=== PATIENT | female | born 2000 | race Caucasian/White ===

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

== ENCOUNTER 2020-07-26 10:12 | Emergency (ER) | payer MEDICAID, SELFPAY ==
[2020-07-26 10:14] VITALS: BP 146/96; PULSE 107; RESP 18; TEMP 36.6; O2SAT 100; BMI 28.7
--- NOTE | 2020-07-26 10:22 | ED.DCSUM_ITS ---
History of Present Illness Informant: Patient Onset: Days - 4 days Context: Gradual Onset Timing: Continuous Quality: Sharp Location: jaw bilaterally Current Severity: Severe Maximum Severity: Severe Worsened by: Eating and drinking Relieved by: - - Nothing Associated Symptoms: Jaw Swelling, Facial Swellling, Hot, Cold, Sensitivity Narrative: 20-year-old female Presents because she had multiple teeth pulled including her wisdom teeth on Wednesday. She is having swelling of her face and jawline increased pain not relieved with Motrin. She had a follow-up 2 days after that and was told she had an infection and started on amoxicillin. She states it has not improved. No fevers. No difficulty breathing or swallowing. No difficulty opening or closing her mouth. She is not lightheaded or dizzy no headache or neck pain. Rest of review of systems negative. Prior similar symptoms: Yes Recent Illness/Hospitalization: No <Lucio Matamoros - Last Filed: 07/26/20 11:18> <Farzad Altamirano - Last Filed: 07/26/20 15:22> Chief Complaint: Dental Past Medical History Past Medical History: None Surgical History: no surgical history Lives: With Family Smoking Status: Current every day smoker Alcohol: None Drugs: None <Lucio Matamoros - Last Filed: 07/26/20 11:18> <Farzad Altamirano - Last Filed: 07/26/20 15:22> - Allergies and Home Meds Allergies/Adverse Reactions: Allergies No Known Allergies Allergy (Verified 07/26/20 10:13) Primary Care Physician: Care Physician,No Primary [Primary Care Provider] - Review of Systems All systems negative except as indicated General: Denies: Chills, Fever, Malaise, Sweats Eyes: Denies: Visual changes - bilaterally, Diplopia ENT: Reports: - - Facial pain and dental pain. Denies: Rhinorrhea, Sore throat Cardiovascular: Denies: Chest pain, Palpitations Respiratory: Denies: Dyspnea, Cough, Dyspnea on exertion Gastrointestinal: Denies: Abdominal pain, Nausea, Vomiting, Diarrhea, Melena, Hematochezia Genitourinary: Denies: Dysuria, Hematuria, Frequency Musculoskeletal: Denies: Back pain, Extremity Pain Skin: Denies: Rash, Wounds Neurological: Denies: Headache, Weakness, Numbness <Lucio Matamoros - Last Filed: 07/26/20 11:18> Physical Exam Vital Signs/Narrative: Vital Signs Temp Pulse Resp BP Pulse Ox 07/26/20 10:14 97.8 F 107 H 18 146/96 H 100 Inital Vital Signs reviewed: Yes General: Well nourished, Well developed Head: Normocephalic, Atraumatic ENT: Moist mucous membranes, No rhinorrhea, TM's clear Mouth/Throat: Normal inspection lips/gums, Normal oral mucosa, No focal abscess, Normal posterior oropharynx, No sublingual edema, Normal Stensen's duct, Focal g um swelling, Tenderness on tooth percussion. Negative for: Dental trauma, Dental abscess, Dental avulsion, Dentral fracture, Filling loss, Focal dental decay, Gingivitis, Trismus Neck: Supple, Nontender, No JVD, Anterior submandibular lymphadenopathy, Posterior submandibular lymphadenopathy, Anterior submental lymphadenopathy, Posterior submental lymphadenopathy. Negative for: Soft tissue swelling, Submandibular soft tissue swelling, Submental soft tissue swelling, Parotid tenderness Cardiovascular: Regular rate, Regular rhythm, No murmurs Respiratory: No distress, CTA bilaterally, Chest nontender Abdomen: Soft, Nontender, Nondistended, Normal bowel sounds Back: Nontender, Normal Inspection. Negative for: CVA tenderness Extremities: Nontender, No edema Skin: Normal color, No rash Neurological: Alert, Oriented x3, Cranial nerves II-XII grossly intact, Normal Strength, Normal Sensation Psychological: Normal affect, Normal Mood <Lucio Matamoros - Last Filed: 07/26/20 11:18> Diagnostic/Tx/Re-eval - Medical Decision Making Patient on exam has no focal abscess no sublingual edema no trismus no drooling or stridor her voice is normal her airway is normal she is eating and drinking and is concerned for worsening infection. She was reassured that at this time there is no focal abscess or other indication for acute surgical intervention or admission. We will switch her from amoxicillin to Augmentin. She will continue Motrin and Tylenol to alternate these and follow-up with her dentist on Wednesday or if symptoms worsen over the weekend to return to the emergency department. <Lucio Matamoros - Last Filed: 07/26/20 11:18> - Medical Decision Making Patient was seen with me. I did a [id number] examination with the patient. Patient presents with right lower dental pain that has been getting worse over the past couple days. Patient states she recently had 3 teeth pulled. Patient states she has been having difficulty opening her jaw due to the pain. Patient states she has been drinking okay. Patient states her jaw opening is getting better over the past couple days. Patient was started on amoxicillin by her dentist. Vital signs are stable. Patient is afebrile. Patient is in no acute distress. Oral mucosa is pink and moist. Oropharynx is clear. There is no focal abscess. There is no exudate on the tonsils. There was some edema over the gingiva of the right lower third molar area. There is tenderness to palpation on this area. Neck is supple. Trachea is midline. There is no JVD. There is no sublingual edema or evidence of Kunal angina. Heart was regular rate and rhythm. Lungs are clear and equal bilaterally. Patient was given a dose of Augmentin. Patient was given a prescription for Augmentin. Patient was instructed to continue Tylenol and/or Motrin as needed for pain or fevers. Patient was instructed to follow-up with her dentist in 5 to 7 days. Patient understood and was agreeable with the plan. All questions were answered. <Farzad Altamirano - Last Filed: 07/26/20 15:22> ED Disposition <Lucio Matamoros - Last Filed: 07/26/20 11:18> <Farzad Altamirano - Last Filed: 07/26/20 15:22> - Plan for ED Patient: Disposition: Home or Assisted Living Diagnosis: Odontalgia, S/P tooth extraction Instructions: ED Dental Pain Prescriptions: Amox/Clavulanate Tablet [Augmentin Tablet] 875 mg PO Q12H #20 tab Transmission Status: Received by [facility]/pharmacy #[id number] Referrals: Care Physician,No Primary [Primary Care Provider] - Additional Instructions: Please call your dentist today to schedule immediate follow-up
== END 2020-07-26 11:31 | disposition home or self-care (01) ==
PROVIDERS: Emergency Provider Physician Assistant Medical
DX: K08.89 Other specified disorders of teeth and supporting structures (principal); K08.409 Partial loss of teeth, unspecified cause, unspecified class; F17.200 Nicotine dependence, unspecified, uncomplicated; Z79.2 Long term (current) use of antibiotics
CPT/HCPCS: 99282

== ENCOUNTER 2022-10-09 11:08 | Day surgery (SDC) | payer BC, MEDICAID, SELFPAY ==
[2022-10-07 16:31] LABS: Hematocrit 40.2 % (37-47); Hemoglobin 13.2 g/dL (12.0-15.0); Mean Corp Hgb Conc 32.8 g/dL (32-36); Mean Corpuscular Hgb 28.8 pg (27.0-32.0); Mean Corpuscular Volume 87.8 fL (81-99); Mean Platelet Vol. 11.6 fl (6.2-12.0); Platelet Count 244 K/mm3 (150-450); RBC Distribution Width CV 13.2 % (11.6-14.6); Red Blood Count 4.58 M/mm3 (4.2-5.4); White Blood Count 11.3 K/mm3 (4.4-11.0)
--- NOTE | 2022-10-09 | FALS_PTH ---
PATIENT: OMAR SANCHEZ LOC: [facility] [place] U#:[id number] AGE/SX: 22/F ROOM: RE10/09/[address]: Dr. Yajaira Dietrich, MDDOB: 2000 BED: DIS: 10/09/2022 SPEC #: [id number] RECD: 10/09/22 15:00 STATUS: NGUYEN BRIDGER #: [id number] IDALIA: 10/09/22 00:[address]: Yajaira Dietrich DEPT: SURGICAL PATHOLOGY RECD BY: Eric Paris ENTERED: 10/12/22 08:43 SP TYPE: FALL TUBES OTHR DR: No Primary Care Phys Tissues: Fallopian tube Procedures: Surgery Specimen Level II Surgery Specimen Level IV HEADER OPERATION: Laparoscopic salpingectomy, IUD removal PRE-OP DIAGNOSIS: Sterilization TISSUE SUBMITTED: Bilateral fallopian tubes MICROSCOPIC DIAGNOSIS Right and left fallopian tubes, bilateral salpingectomies: Complete cross-sections of fallopian tubes. One fallopian tube with benign paratubal cyst. AM:jameson 10/13/2022 MICROSCOPIC DESCRIPTION Slides are reviewed. GROSS DESCRIPTION Received in fixative is one container labeled with the patient's name and designated bilateral fallopian tubes. The specimen consists of bilateral fallopian tubes including fimbrial ends measuring 6.0 cm in length and 1.0 cm in diameter and 7.0 cm in length and 0.8 cm in diameter. The fallopian tubes are not identified as right or left. Sections reveal unremarkable cut surfaces. One tube contains a cyst containing clear fluid and measuring 1.0 cm, adjacent to the fimbrial end. Pharmacist Critical Care sections are submitted in two cassettes with each cassette containing one fallopian tube. / SJ:jameson 10/12/2022 TC:5 CPT: 11075, 16473
--- NOTE | 2022-10-09 08:55 | PCM.HP.BLA ---
History and Physical Date of Admission: 10/09/22 Expand All Collapse AllExpand All by Default Pre-Op History and Physical ? HPI: The patient is a 22 year old female presenting for surgical sterilization consultation. Patient reports has 1 child age 33 years old. Does not desire future childbearing capabilities. Patient currently uses an IUD but would like it removed. Patient understands that this is not reversible. She understands the risk of regret. ? Pre-operative visit. She is scheduled for laparoscopic bilateral salpingectomy, for desires sterilization on 10/09/2022. Procedure discussed along with risks, benefits and complications. Other alternatives discussed for management. Consent form signed? Yes. ? ? PAST MEDICAL HISTORY PAST MEDICAL HISTORY Diagnosis Date ? Anemia during in second trimester 05/31/2019 ? ? PAST SURGICAL HISTORY PAST SURGICAL HISTORY Procedure Laterality Date ? TONSILLECTOMY HX ? CURRENT MEDICATIONS Current Outpatient Medications Medication Sig Dispense Refill ? levonorgestrel (MIRENA) 20 mcg/24 hours (6 yrs) 52 mg IUD 1 Each by INTRAUTERINE route as directed. 1 Each 0 ? No current facility-administered medications for this visit. ? ? ALLERGIES: Patient has no known allergies. ? PERSONAL HISTORY: SOCIAL HISTORY Social History ? Tobacco Use ? Smoking status: Every Day ? ? Packs/day: 0.50 ? ? Types: Cigarettes ? Smokeless tobacco: Never ? Tobacco comments: ? ? Vaping Vaping Use ? Vaping Use: current everyday user ? Substances: Nicotine Substance Use Topics ? Alcohol use: Not Currently ? Drug use: Not Currently ? ? Types: Marijuana ? FAMILY HISTORY: FAMILY HISTORY FAMILY HISTORY Problem Relation Age of Onset ? Heart Mother ? ? other (unknown) Father ? ? No Known Problems Sister ? ? Asthma Brother ? ? other (constipation/impaction isues) Brother ? ? No Known Problems Maternal Grandmother ? ? No Known Problems Maternal Grandfather ? ? No Known Problems Paternal Grandmother ? ? Cancer Paternal Grandfather ? ? Asthma Brother ? ? ? REVIEW OF SYMPTOMS: negative except as noted above PHYSICAL EXAMINATION: ? VITALS: Blood pressure 140/86, weight 202 lb (91.6 kg), last menstrual period 07/24/2020. ? GENERAL: The patient is well nourished, well hydrated in no acute distress. , The patient is oriented to time, place, and person. NECK: full range of motion LUNGS: Clear to auscultation bilaterally. no wheezes, rhonchi or rales HEART: Regular rate and rhythm, Normal heart sounds, and No murmurs or gallops ? ? IMPRESSION: 22-year-old G1, P1 desires permanent sterilization, and removal of Mirena IUD ? PLAN: Laparoscopic bilateral salpingectomy with removal of Mirena IUD. Pt has been counseled on risks/benefits and alternatives of surgery including but not limited to anesthesia, bleeding, infection, injury to pelvic structures including bowel, bladder, ureters and vessels. Pt wishes to proceed with surgery at this time. Patient understands that this is irreversible and permanent. She understands that if she ever wants to conceive that she would have to go through reproductive medicine. Understands that menses may become more heavy and regular once IUD is removed. ? Consent signed. Pre and postop instructions were reviewed. ? ? I have reviewed and updated past medical and surgical history, medications and allergies Yajaira Mejia MD
[2022-10-09 11:36] LABS: Internal QC Validated? YES +Cl - CLEAR BKGD; Pregnancy, Urine Negative Negative
[2022-10-09 11:41] VITALS: BP 143/82; PULSE 92; RESP 16; TEMP 37.1; O2SAT 99; BMI 29.7
[2022-10-09] MEDS: Lactated Ringers 1,000 ML 15 ML IV (11:48)
[2022-10-09] MEDS: Bupivacaine 0.25% 30 ML Vial (13:51)
--- NOTE | 2022-10-09 14:24 | DCINST_ITS ---
Discharge Instructions Procedure Other Diet Discharge Diet: No restrictions Activity May resume sexual activity in: 2 weeks Lifting Restrictions: 20-25 lbs Dressing / Incision Call your doctor if your incision/area has: Continuous Slow Oozing, Sudden Increased Bleeding, Increased Pain/ Swelling, Increased Redness, Foul Smelling Discharge and Swelling at the incision site Call your doctor if you observe: Fever of 101 or Higher, Inability to urinate, Inability to have a bowel movement, Using more than 1 pad per hour and Uncontrolled pain Additional Dressing/Incision Instructions:: You have skin glue over your incision sites, do not pick off. You may shower and let the soap and water run over the incision sites and dab dry. Follow Up Care Please Follow Up With: Yajaira Dietrich MD When: 1-2 weeks post OP if you need an appointment please call [phone] Test Results: Test results from this visit will be discussed in further detail at your follow- up appointment, if applicable. Discharge Plan Admission Attending Provider: Yajaira Dietrich Primary Care Provider: Care Physician,Sharon Primary Discharge Orders/Prescriptions Prescriptions: No Action NK Referrals / Follow Up: Care Physician,No Primary [Primary Care Provider] - Disposition Disposition (needs filled in before D/C Order can be placed): Home, Self Care
--- NOTE | 2022-10-09 14:25 | OP.PCM_ITS ---
Report of Operation Date of Procedure: 10/09/22 Pre-Operative Diagnosis: Desires sterilization, IUD removal Post-Operative Diagnosis: same Surgery/Procedure Performed:: Laparoscopic Bilateral salpingectomy, IUD removal Description of Surgical Findings:: normal Tubes and ovaries bilaterally Surgeon: Yajaira Dietrich turnstile collector: None (lula pacheco, MS3) Type of Anesthesia: Local and MAC Special Medications: .25% marcaine Specimen's removed: IUD - mirena, Bilateral Fallopian tubes Drains: none Estimated Blood Loss (mL): <5cc Fluids Replaced: 1200 Description of Procedure: After informed consent was obtained patient was taken to the operating room she was placed in supine position she was given anesthesia. She was then placed in the [facility] stirrups and she was prepped and draped in normal sterile fashion. Bladder was drained prior to the start of procedure. At this time attention was turned to the vaginal portion where weighted speculum placed at posterior fornix vagina single-tooth tenaculum was used to gently grasp the internal the cervix. IUD strings not seen- Alva used to grasp strings in endocervical canal. IUD removed intact. uterus was gently sounded to appro ximately cm. Uterine manipulator was placed without difficulty. Legs then placed in parallel with the abdomen the tenaculum and the weighted speculum were removed. 2 towel clamps were placed at level of umbilicus. Marcaine was injected infraumbilical and a small incision was made. The 5 mm trocar was placed under direct visualization. CO2 gas was used to insufflate the intra- abdominal cavity. Upon inspection no gross abnormalities appreciated- the uterus tubes and ovaries appeared to be normal. At this time then the LLQ and RLQ ports were placed First Marcaine was injected and small incision was made a knife and the 5 mm trocars were placed. At this time then tubes were traced back to the fimbriated ends. Enseal was used to coagulate and ligate along mesosalpinx bilaterally until tubes removed completely. Good hemostasis was appreciated. At this time procedure was deemed complete successful. The gas was desufflated on from the intra-abdominal cavity. The trochars were removed. Skin was closed using 4-0 Monocryl in a subcutaneous fashion. Dermabond glue was placed. Instrument lap and needle counts were correct ?2. The uterine manipulator was removed. Vaginal sweep was performed it was negative. There were no complications anticipated normal postoperative course for this patient. Grafts/Implants Used: none Procedure Start Time: 13:50 Procedure Stop Time: 14:15 Complications none Admit VTE Documentation VTE Present on Admission: Yes VTE Mechan Device Prophylaxis: SCD's VTE Pharm Prophylaxis ordered?: No Reason prophylaxis not ordered:: Procedure Not Indicated
[2022-10-09 14:30] VITALS: BP 143/82; BP 160/80; PULSE 76; RESP 18; O2SAT 98
[2022-10-09 14:32] VITALS: BP 143/82; BP 155/109; PULSE 80; RESP 20; TEMP 36.4; O2SAT 100
[2022-10-09 14:45] VITALS: BP 127/82; BP 143/82; PULSE 69; RESP 18; O2SAT 95
[2022-10-09 15:00] VITALS: BP 124/75; BP 143/82; PULSE 70; RESP 16; TEMP 37.4; O2SAT 96
[2022-10-09] MEDS: HYDROcodone Bitartrate/Apap 5/325 Tablet PO (15:44)
[2022-10-09 16:21] VITALS: BP 109/63; BP 143/82; PULSE 71; RESP 16; TEMP 37.1; O2SAT 97
== END 2022-10-09 16:33 | disposition home or self-care (01) ==
LOC: SDC 11:10 → AC 11:11
PROVIDERS: Referring Provider Obstetrics & Gynecology; Visit Provider Obstetrics & Gynecology
PROC: (CPT 58661; principal; 2022-10-09 13:40)
DX: Z30.2 Encounter for sterilization (principal); Z30.432 Encounter for removal of intrauterine contraceptive device; N83.8 Other noninflammatory disorders of ovary, fallopian tube and broad ligament; F17.210 Nicotine dependence, cigarettes, uncomplicated
CPT/HCPCS: 58661; 58301; 36415; 81025; 85027; 88302; 88305; J7120; C1760; J2405

== ENCOUNTER 2022-10-15 10:09 | Emergency (ER) | payer BC, MEDICAID, SELFPAY ==
[2022-10-15 10:10] VITALS: BP 167/109; PULSE 89; RESP 14; TEMP 36.6; O2SAT 100; BMI 28.8
--- NOTE | 2022-10-15 10:34 | ED.VIS.FEGU ---
HPI HPI - Female History of Present Illness Chief Complaint: Vag Bleeding Narrative Narrative: Patient presents with vaginal bleeding. She thinks it is likely her menstrual cycle but she wants to make sure since a week ago she had removal of her fallopian tubes as well as removal of her IUD. She has no abdominal pain, she does not feel lightheaded. She has no fevers or chills. She has no dysuria or hematuria she has no other complaints other than this feels like a normal. She just wants to make sure. PFSH PFSH Medical History Anemia Depression Marijuana use Rash Smoker Home Medications NK 10/02/22 [History Last Taken Unknown] Allergy/AdvReac Type Severity Reaction Status Date / Time No Known Allergies Allergy Verified 10/09/22 11:40 Surgical History History of tonsillectomy Social History Smoking Status: Current every day smoker tobacco type: cigarettes ROS ROS ED ROS Narrative Past medical history: G1, P1 Medications: Reviewed Social history: Noncontributory Review of systems: All systems negative except as indicated General: No fever Cardiovascular: No chest pain Respiratory: No shortness of breath or cough Gastrointestinal: No abdominal pain, nausea vomiting or diarrhea Genitourinary: No dysuria, vaginal bleeding as in HPI Musculoskeletal: Denies myalgias no difficulty with ambulation Skin: No rash Hematologic: No easy bleeding or easy bruising EXAM Physical Exam Narrative Exam Narrative: Physical exam General: Patient does not appear in any distress she appears comfortable in the room Head: Normocephalic, Atraumatic Eyes: Conjunctiva not pale ENT: Moist mucous membranes Cardiovascular: Regular rate, Regular rhythm Respiratory: No distress, CTA bilaterally Abdomen: Soft, Nontender, Nondistended, incisions are clean dry and intact : Speculum exam reveals very slight bleeding from the os. This is in line with likely a normal menstrual cycle bleeding. Cervix is not friable and appears normal. Back: Nontender, Normal Inspection. Negative for: CVA tenderness Extremities: Nontender, No edema Skin: Normal color, No rash Const Vital Signs: 10/15/22 10:10 Temperature 98 F Temperature Source Temporal Pulse Rate 89 Respiratory Rate 14 Blood Pressure 167/109 H Blood Pressure Mean 128 Pulse Ox 100 Oxygen Delivery Method Room Air MDM MDM MDM Narrative Medical decision making narrative: Patient is presenting with vaginal bleeding. That is a her only complaint, she just wants to make sure that after surgery everything looks all right. On my exam she has no signs of infection, she has what I think is normal vaginal bleeding from the menstrual cycle. I reassured her I do not believe she needs any kind of blood work. I thought about an ultrasound but she has no abdominal pain her blood is not foul-smelling therefore I do not believe there is an infection. She understands this she is okay with the plan of discharge to home, if anything changes she is to return. Discharge Plan Triage Chief Complaint: Vag Bleeding ED Provider: Supa Ho Dx/Rx/DC Orders Clinical Impression: Abnormal vaginal bleeding, Encounter for post surgical wound check Instructions: Understanding Uterine Bleeding Prescriptions: No Action NK Primary Care Provider: Care Physician,No Primary Referrals: Care Physician,No Primary [Primary Care Provider] - Disposition Disposition: Home, Self Care
[2022-10-15 10:42] VITALS: RESP 16
== END 2022-10-15 10:43 | disposition home or self-care (01) ==
LOC: ED 10:42
PROVIDERS: Emergency Provider Emergency Medicine; Visit Provider Emergency Medicine
DX: N93.9 Abnormal uterine and vaginal bleeding, unspecified (principal); Z51.89 Encounter for other specified aftercare; F17.210 Nicotine dependence, cigarettes, uncomplicated; Z90.79 Acquired absence of other genital organ(s); Z98.890 Other specified postprocedural states
CPT/HCPCS: 99282

== ENCOUNTER 2023-12-14 12:27 | Emergency (ER) | payer MEDICAID, SELFPAY ==
[2023-12-14 12:28] VITALS: BP 157/99; PULSE 107; RESP 20; TEMP 36.1; O2SAT 100; BMI 21.7
--- NOTE | 2023-12-14 12:52 | RAD_ITS ---
STUDY: X-RAY CHEST REASON FOR EXAM: Female, 23 years old. chest pain TECHNIQUE: Single AP portable view of the chest. COMPARISON: 11/28/2009 FINDINGS: EKG leads overlie the chest The lungs are clear and expanded. There is no demonstrated pleural abnormality. Normal size heart. Normal mediastinum and xiomara. Normal visualized pulmonary arteries. Normal visualized aortic arch and descending thoracic aorta. Normal visualized thoracic spine. Normal visualized ribs, clavicles, and shoulders. There is no demonstrated abnormality of the visualized soft tissue structures of the upper abdomen. RAD/Chest 1 View (Portable) IMPRESSION: Normal x-ray examination of the chest. Electronically Signed: Evan Easley MD at 13:18 EDT ,
--- NOTE | 2023-12-14 12:52 | EKG12_ITS ---
Test Reason : CHEST PAIN Blood Pressure : / mmHG Vent. Rate : 080 BPM Atrial Rate : 080 BPM P-R Int : 144 ms QRS Dur : 094 ms QT Int : 390 ms P-R-T Axes : 075 081 051 degrees QTc Int : 449 ms Normal sinus rhythm Normal ECG Confirmed by RUDY LEDESMA, JUSTIN ([id number]), newspaper managing editor JORDY CARTER ([id number]) on 12/16/2023 6:58:29 AM Referred By: Confirmed By:JUSITN GRANT MD
[2023-12-14 13:00] VITALS: O2SAT 96
[2023-12-14 13:28] VITALS: BP 135/91; BP 136/87; BP 149/104; PULSE 100; PULSE 65; PULSE 76
[2023-12-14 13:34] LABS: Absolute Lymphocyte Count 2.08 X10^3/uL (0.83-4.51); Absolute Neutrophil Count 4.1 X10^3/uL (2.0-7.7); Basophil# 0.05 X10^3/uL; Basophil% 0.7 % (0-1); Eosinophil# 0.06 X10^3/uL; Eosinophils% 0.9 % (0-5); Hematocrit 38.9 % (37-47); Hemoglobin 13.1 g/dL (12.0-15.0); Lymphocyte # 2.08 X10^3/ul (0.83-4.51); Lymphocyte % 30.1 % (19-41); Mean Corp Hgb Conc 33.7 g/dL (32-36); Mean Corpuscular Hgb 29.4 pg (27.0-32.0); Mean Corpuscular Volume 87.4 fL (81-99); Mean Platelet Vol. 11.9 fl (6.2-12.0); Monocyte# 0.65 X10^3/uL; Monocyte% 9.4 % (0-10); NRBC Flagged by Analyzer 0 % (0-5); Neutrophil # 4.05 X10^3/uL (2.7-7.7); Neutrophil % 58.8 % (47-70); Platelet Count 271 K/mm3 (150-450); RBC Distribution Width CV 13.4 % (11.6-14.6); RBC Distribution Width SD 42.9 fl (35.1-43.9); Red Blood Count 4.45 M/mm3 (4.2-5.4); White Blood Count 6.9 K/mm3 (4.4-11.0)
[2023-12-14 13:43] LABS: BNP,B-Type NATRIURETIC PEPTIDE 14.3 pg/mL (0-100)
[2023-12-14 13:47] LABS: Anion Gap 7 (5-15); BUN 19 mg/dL (7-18); BUN/Creat Ratio 24.2 RATIO (10-20); Calcium,Total 9.2 mg/dL (8.5-10.1); Chloride 107 mmol/L (98-107); Creatinine, Serum 0.78 mg/dL (0.55-1.02); EST Glomerular Filtration Rate 96 mL/min (>60); Est Glom Filt Rate - Afr Amer 117 mL/min (>60); Estimated Creatinine Clearance 128.68 ml/min; Glucose 97 mg/dL (74-106); Potassium 3.5 mmol/L (3.5-5.1); Sodium Level 140 mmol/L (136-145); Troponin-I HS 6 pg/mL (3.0-54.0)
[2023-12-14 13:48] LABS: D-Dimer Quantitative (DVT/PE) < 0.27 FEU/ug/m (0.27-0.49)
[2023-12-14 14:15] VITALS: BP 134/87; PULSE 58; RESP 14; O2SAT 96
[2023-12-14] MEDS: 0.9% Normal Saline (1000mL) 1,000 ML 999 ML IV (14:18)
[2023-12-14 15:30] VITALS: BP 127/86; PULSE 64; RESP 15; O2SAT 96
--- NOTE | 2023-12-14 16:13 | ED.VIS.CHEST ---
HPI History of Present Illness Chief Complaint: Chest Pain Narrative Narrative: Patient presenting with chest pain and tightness. States also felt she was short of breath and hyperventilating and felt numbness and tingling in her fingers and toes patient has a history of anxiety and used to be on Celexa but states she felt high on Celexa and did not like the feeling. She discontinued it months ago and she has been having episodes of this tightness and shortness of breath. She does not have a cardiac history. She is a smoker and smokes marijuana. Patient denies asthma or COPD history. CVD Risk Factors: Positive for Smoking; Negative for Hypertension, Diabetes, Hypercholesterolemia or Family History 1' </=55 PE Risk Factors: Negative for Recent Travel/Surgery, Recent Immobilization, Prior DVT or PE, Cancer or OCP + Smoking + >/=35 PFSH PFSH Medical History Anemia Depression Marijuana use Rash Smoker Home Medications hydroxyzine pamoate 25 mg capsule (Vistaril) 25 mg PO TID PRN anxiety #30 caps 12/14/23 [Rx Last Taken Unknown] Allergy/AdvReac Type Severity Reaction Status Date / Time No Known Allergies Allergy Verified 10/09/22 11:40 Surgical History History of tonsillectomy Social History Smoking Status: Current every day smoker tobacco type: cigarettes EXAM Physical Exam Const Vital Signs: 12/14/23 12:28 12/14/23 12:28 12/14/23 13:00 Temperature 96.9 F L Temperature Source Temporal Pulse Rate 107 H 107 H Pulse Rate [Lying] Pulse Rate [Sitting (for 1 minute prior to obtaining)] Pulse Rate [Standing (for 1 minute prior to obtaining)] Respiratory Rate 20 H 20 H Blood Pressure 157/99 H 157/99 H Blood Pressure [Lying] Blood Pressure [Sitting (for 1 minute prior to obtaining)] Blood Pressure [Standing (for 1 minute prior to obtaining)] Blood Pressure Mean 118 118 Blood Pressure Mean [Lying] Blood Pressure Mean [Sitting (for 1 minute prior to obtaining)] Blood Pressure Mean [Standing (for 1 minute prior to obtaining)] Pulse Ox 100 100 96 Oxygen Delivery Method Room Air Room Air Room Air 12/14/23 13:28 12/14/23 14:15 12/14/23 15:30 Temperature Temperature Source Pulse Rate 58 L 64 Pulse Rate [Lying] 65 Pulse Rate [Sitting (for 1 minute prior to obtaining)] 76 Pulse Rate [Standing (for 1 minute prior to obtaining)] 100 Respiratory Rate 14 15 Blood Pressure 134/87 H 127/86 H Blood Pressure [Lying] 136/87 H Blood Pressure [Sitting (for 1 minute prior to obtaining)] 135/91 H Blood Pressure [Standing (for 1 minute prior to obtaining)] 149/104 H Blood Pressure Mean 102 98 Blood Pressure Mean [Lying] 103 Blood Pressure Mean [Sitting (for 1 minute prior to obtaining)] 105 Blood Pressure Mean [Standing (for 1 minute prior to obtaining)] 119 Pulse Ox 96 96 Oxygen Delivery Method Positive well nourished HEENT Reports TM's clear and moist mucous membranes normocephalic and atraumatic Tympanic Membrane ED: Yes TM's clear Eyes PERRL and EOMs intact bilaterally Chest Wall inspection of chest normal Resp normal respiratory effort and clear to auscultation bilaterally Auscultation: Negative for rales, rhonchi or wheezes Cardio regular rate and regular rhythm Extremity normal to inspection Neuro oriented x3 and CN's II-XII intact bilaterally Sensorium / Orientation: awake and alert Motor Exam: strength 5/5 throughout Psych mental status grossly normal Mood & Affect: anxious Skin no rashes or lesions noted and no wounds MDM MDM MDM Narrative Medical decision making narrative: Patient presenting with chest tightness, hyperventilation and numbness tingling of fingers toes. Patient initially thought it was something more severe but now she believes it is anxiety. Differential includes anxiety, ACS, pneumonia, dehydration, anemia, electrolyte abnormalities, PE. Patient is not concerned for . CBC was obtained to assess white blood cell count, hemoglobin, platelets. BMP to assess renal function, electrolytes, glucose. High-sensitivity troponin and EKG to assess for ischemia/arrhythmia. Chest x-ray to rule out pneumonia. D-dimer to assess for PE. CBC, BMP fairly unremarkable except for some prerenal azotemia and a creatinine of 0.78 with a BUN/creatinine ratio of 24.2. Troponin 6. BNP 14.3. EKG on my interpretation showed a sinus rhythm at 80 bpm without sign ischemic change or ectopy. Orthostatic vital signs shows normal blood pressures however heart rate goes from 65-100 so she was given a liter IV fluids. Reevaluation at 4:10 PM and she is feeling much better. Since her workup is ultimately normal discussed close follow-up for anxiety. I gave her some Vistaril. I gave her resources for [facility]. Return precautions were discussed. Impression: 1. Anxiety 2. Chest pain Lab Data Labs: Laboratory Results - last 24 hr 12/14/23 13:05 WBC 6.9 RBC 4.45 Hgb 13.1 Hct 38.9 MCV 87.4 MCH 29.4 MCHC 33.7 RDW Std Deviation 42.9 RDW Coeff of Sammy 13.4 Plt Count 271 MPV 11.9 Immature Gran % (Auto) 0.100 Neut % (Auto) 58.8 Lymph % (Auto) 30.1 [place] % (Auto) 9.4 Eos % (Auto) 0.9 Baso % (Auto) 0.7 Absolute Neuts (auto) 4.1 Absolute Lymphs (auto) 2.08 Nucleated RBC % 0 D-Dimer Quant (PE/DVT) < 0.27 L Sodium 140 Potassium 3.5 Chloride 107 Carbon Dioxide 26.0 Anion Gap 7 BUN 19 H Creatinine 0.78 Estim Creat Clear Calc 128.68 Est GFR (MDRD) Af Amer 117 Est GFR (MDRD) Non-Af 96 BUN/Creatinine Ratio 24.2 H Glucose 97 Calcium 9.2 Troponin I High Sens 6 B-Natriuretic Peptide 14.3 Radiography Diagnostic Testing: Clinical Impression(s) from Imaging Studies Chest X-Ray 12/14/23 12:52 IMPRESSION: Normal x-ray examination of the chest. Electronically Signed: Evan Easley MD at 13:18 EDT , Discharge Plan Triage Chief Complaint: Chest Pain ED Provider: Chirag Franco Dx/Rx/DC Orders Instructions: ED Anxiety Reaction, ED Chest Pain, Noncardiac, ED Dehydration (Adult) Prescriptions: New hydroxyzine pamoate [Vistaril] 25 mg capsule 25 mg PO TID PRN (Reason: anxiety) Qty: 30 0RF Primary Care Provider: Care Physician,No Primary Referrals: [facility] [Provider Group] - 3-5 Days Care Physician,No Primary [Primary Care Provider] - Disposition Disposition: Home, Self Care
[2023-12-14 16:32] VITALS: BP 123/80; PULSE 56; RESP 16; TEMP 36.7; O2SAT 97
== END 2023-12-14 16:33 | disposition home or self-care (01) ==
PROVIDERS: Emergency Provider Student in an Organized Health Care Education/Training Program; Visit Provider Student in an Organized Health Care Education/Training Program
DX: F41.9 Anxiety disorder, unspecified (principal); R07.9 Chest pain, unspecified; F17.210 Nicotine dependence, cigarettes, uncomplicated; R06.02 Shortness of breath
CPT/HCPCS: 71045; 80048; 83880; 84484; 85025; 85379; 93005; 96360; 99285; J7030

== ENCOUNTER 2024-01-24 17:11 | Emergency (ER) | payer MEDICAID, SELFPAY ==
[2024-01-24 17:12] VITALS: BP 127/84; PULSE 111; RESP 18; TEMP 37; O2SAT 100; BMI 21.0
--- NOTE | 2024-01-24 17:38 | EDS_ITS ---
HPI History of Present Illness Chief Complaint: Abd Pain Informant: patient Narrative Narrative: 23-year-old female presenting to the emergency room with back and abdominal pain. Patient states that symptoms began about 4 days ago. Pain starts in her low back and wraps around each side into the lower back. It is made worse with movement and drying her knees up. She states that she is currently having a period. She states that this month it seemed to be a little early and at times is heavy and at times light. She states normally she is very regular with her cycles. She has had bilateral tubal removal. She does not get regular well woman checkups. Currently being treated with hydroxyzine for anxiety. She denies any known back trauma. No vomiting diarrhea or urinary symptoms. No fevers but notes chills and sweats. No syncope but notes lightheaded if she gets up too quickly. She does admit the is a possibility. [facility] Medical History Depression Marijuana use Rash Smoker Anemia Home Medications ?Medication ?Instructions ?Recorded ?Last Taken ?Type hydroxyzine pamoate 25 mg capsule 25 mg PO TID PRN anxiety #30 caps 12/14/23 Unknown Rx (Vistaril) ondansetron 4 mg disintegrating 4 mg PO Q6H PRN PRN Nausea #10 tabs 01/24/24 Unknown Rx tablet oxycodone-acetaminophen 5 mg-325 1 tab PO Q6H PRN pain 3 days #12 01/24/24 Unknown Rx mg tablet (Percocet) tabs sulfamethoxazole 800 1 tab PO BID #20 TABLETS 01/24/24 Unknown Rx mg-trimethoprim 160 mg tablet Allergy/AdvReac Type Severity Reaction Status Date / Time No Known Allergies Allergy Verified 01/24/24 17:53 Surgical History History of tonsillectomy Social History Smoking Status: Current every day smoker tobacco type: cigarettes ROS ROS ED Constitutional Constitutional ED: Reports chills and sweats; Denies fever(s) or weight loss Eyes Eyes: Denies change in vision or diplopia ENT ENT ED: Denies ear pain, rhinorrhea or sore throat Cardiovascular Cardiovascular: Denies chest pain, orthopnea, palpitations or racing heartbeat Respiratory/Chest Respiratory/Chest: Denies cough, dyspnea or orthopnea Gastrointestinal Gastrointestinal: Reports abdominal pain; Denies diarrhea, nausea or vomiting Genitourinary Genitourinary ED: Denies dysuria, hematuria or urinary frequency Musculoskeletal Musculoskeletal: Reports back pain; Denies arthralgias or myalgias Integumentary Denies abscess or rash Neurologic Neurologic: Denies headache(s), paresthesias or weakness Psychiatric Psychiatric: Denies anxiety, depression, suicidal ideation or suicidal thoughts Endocrine Endocrinology: Denies polydipsia, polyphagia or polyuria Allergic/Immunologic Allergic/Immunologic ED: Denies mouth swelling, tongue swelling or urticaria EXAM Physical Exam Narrative Exam Narrative: Patient appears quite uncomfortable sitting on the bed. Const Vital Signs: 01/24/24 17:12 01/24/24 19:12 Temperature 98.6 F Temperature Source Temporal Pulse Rate 111 H 90 Respiratory Rate 18 18 Blood Pressure 127/84 H Blood Pressure Mean 98 Pulse Ox 100 99 Oxygen Delivery Method Room Air Room Air Positive well nourished and well developed General Appearance ED: well developed HEENT Reports normocephalic, head/scalp atraumatic and moist mucous membranes Eyes PERRL and EOMs intact bilaterally Neck no lymphadenopathy, supple and no JVD Resp normal respiratory effort and clear to auscultation bilaterally Cardio regular rate, regular rhythm and no murmurs Rate: tachycardic GI Palpation: soft, tender LLQ, RLQ and suprapubic and guarding Back/Spine no CVA tenderness Back/Spine Narrative: There is a lidocaine patch in the midline of her low back. I do not appreciate any rashes. There is a quarter size green ecchymotic area in the axillary midline around rib T12. Extremity normal to inspection General Extremety ED: Negative for edema General Extremity: Negative for edema Neuro oriented x3 and CN's II-XII intact bilaterally Sensorium / Orientation: alert Motor Exam: strength 5/5 throughout Psych mental status grossly normal Mood & Affect: Negative for depressed or tearful Skin no rashes or lesions noted and no wounds MDM MDM MDM Narrative Medical decision making narrative: Differential diagnosis includes ectopic appendicitis psoas muscle hematoma or infection perforated viscus small bowel obstruction tubo-ovarian abscess PID lumbar myofascial strain UTI pyelonephritis shingles White count is elevated at 15 with 78.1 neutrophils. Creatinine 1.03 with a BUN of 21. LFTs are normal lipase normal test is negative urinalysis 25- 50 white cells 3+ bacteria 5-10 red cells positive nitrates positive leukocyte Estrace. This was sent for culture. A CT of the abdomen pelvis was obtained. Please see radiologist read for details. Prior to obtaining the CT read the patient became upset with some pain in her IV site and stated that her anxiety was bad and that she was needing to leave. She signed out AGAINST MEDICAL ADVICE. Once I reviewed the CT findings and her labs I am having nursing call her and advise her that she will be given a diagnosis of pyelonephritis and will need antibiotics. I can write for pain and nausea medicine. She is welcome to return at any time History & Record Review Discussion w/independent historian: Patient Lab Data Attestation: I reviewed the patient's lab results. Labs: Laboratory Results - last 24 hr 01/24/24 01/24/24 17:55 18:15 WBC 15.0 H RBC 4.35 Hgb 12.3 Hct 38.1 MCV 87.6 MCH 28.3 MCHC 32.3 RDW Std Deviation 40.8 RDW Coeff of Sammy 12.6 Plt Count 296 MPV 11.8 Immature Gran % (Auto) 0.400 Neut % (Auto) 78.1 H Lymph % (Auto) 11.8 L Wolfe % (Auto) 8.8 Eos % (Auto) 0.5 Baso % (Auto) 0.4 Absolute Neuts (auto) 11.7 H Absolute Lymphs (auto) 1.77 Nucleated RBC % 0 Sodium 135 L Potassium 3.8 Chloride 102 Carbon Dioxide 23.0 Anion Gap 10 BUN 21 H Creatinine 1.03 H Estim Creat Clear Calc 91.91 Est GFR (MDRD) Af Amer 85 Est GFR (MDRD) Non-Af 70 BUN/Creatinine Ratio 20.4 H Glucose 88 Calcium 9.8 Total Bilirubin 0.70 Direct Bilirubin 0.17 AST 24 ALT 20 Alkaline Phosphatase 54 Total Protein 8.2 Albumin 3.7 Globulin 4.5 H Lipase 16 Serum , Qual NEGATIVE Urine Color Yellow Urine Clarity Sl. Cloudy Urine pH 5.0 Ur Specific [place] 1.015 Urine Protein 30 H Urine Glucose (UA) Normal Urine Ketones 50 H Urine Occult Blood 250 H Urine Nitrite Positive H Urine Bilirubin Negative Urine Urobilinogen Normal Ur Leukocyte Esterase 500 H Urine RBC 5-10 SEEN Urine WBC 25-50 SEEN Ur Squamous Epith Cells 0-5 SEEN Urine Bacteria 3+ Urine Mucus 3+ Radiography Diagnostic Testing: Clinical Impression(s) from Imaging Studies Abdomen/Pelvis CT 01/24/24 18:44 IMPRESSION: No evidence for bowel obstruction or definitive evidence for acute appendicitis.. No definitive evidence for acute appendicitis. Cannot exclude possibility of pyelonephritis. Clinical correlation recommended Electronically Signed: Grabiel Garcia MD at 21:01 EDT Reading Location ID and State: [facility] / [place] Tel , Service support , Discharge Plan Triage Chief Complaint: Abd Pain Other Complaint: Back ED Provider: Tomás Gracia Dx/Rx/DC Orders Clinical Impression: Pyelonephritis, Abdominal pain, Back pain Prescriptions: New sulfamethoxazole-trimethoprim 800-160 mg tablet 1 tab PO BID Qty: 20 0RF oxycodone-acetaminophen [Percocet] 5-325 mg tablet 1 tab PO Q6H PRN (Reason: pain) 3 Days Qty: 12 0RF ondansetron 4 mg tablet,disintegrating 4 mg PO Q6H PRN PRN (Reason: Nausea) Qty: 10 0RF No Action hydroxyzine pamoate [Vistaril] 25 mg capsule 25 mg PO TID PRN (Reason: anxiety) Qty: 30 0RF Primary Care Provider: Care Physician,No Primary Referrals: Care Physician,No Primary [Primary Care Provider] - Print Language: Palestinian Disposition Disposition: Against Medical Advice Discharge Date/Time: 01/24/24 20:57 Capacity Capacity Assessment Tool Patient lacks Decision Making Capacity: unable to understand, reason and deliberate health related choices: No Risk to self and or others?: No Risk of leaving the patient care unit and or hospital?: Yes
[2024-01-24 18:02] LABS: Absolute Lymphocyte Count 1.77 X10^3/uL (0.83-4.51); Absolute Neutrophil Count 11.7 X10^3/uL (2.0-7.7); Basophil# 0.06 X10^3/uL; Basophil% 0.4 % (0-1); Eosinophil# 0.07 X10^3/uL; Eosinophils% 0.5 % (0-5); Hematocrit 38.1 % (37-47); Hemoglobin 12.3 g/dL (12.0-15.0); Lymphocyte # 1.77 X10^3/ul (0.83-4.51); Lymphocyte % 11.8 % (19-41); Mean Corp Hgb Conc 32.3 g/dL (32-36); Mean Corpuscular Hgb 28.3 pg (27.0-32.0); Mean Corpuscular Volume 87.6 fL (81-99); Mean Platelet Vol. 11.8 fl (6.2-12.0); Monocyte# 1.32 X10^3/uL; Monocyte% 8.8 % (0-10); NRBC Flagged by Analyzer 0 % (0-5); Neutrophil # 11.74 X10^3/uL (2.7-7.7); Neutrophil % 78.1 % (47-70); Platelet Count 296 K/mm3 (150-450); RBC Distribution Width CV 12.6 % (11.6-14.6); RBC Distribution Width SD 40.8 fl (35.1-43.9); Red Blood Count 4.35 M/mm3 (4.2-5.4)
[2024-01-24] MEDS: Ondansetron 4 MG/2 ML Vial IV (18:07)
[2024-01-24] MEDS: Morphine 4 MG/ML Syringe IV (18:07)
[2024-01-24] MEDS: 0.9% Normal Saline (1000mL) 1,000 ML 999 ML IV (18:07)
[2024-01-24 18:28] LABS: Color, Urine Yellow (Yellow); Glucose, Dipstick Normal (Normal); Ketone-Dipstick 50 mg/dl (Negative); Leukocyte Esterase-Dipstick 500 /ul (Negative); Nitrite-Dipstick Positive (Negative); Occult Blood-Urine 250 /ul (Negative); Protein-Dipstick 30 mg/dl (Negative); Specific Gravity, Urine 1.015 (1.002-1.030); Urine Bilirubin Dipstick Negative (Negative); Urine Clarity Sl. Cloudy (Clear); Urine Urobilinogen Normal (Normal)
[2024-01-24 18:43] LABS: Internal QC Validated? YES +Cl - CLEAR BKGD; Pregnancy, Serum, hCG Quali. NEGATIVE Negative
--- NOTE | 2024-01-24 18:44 | CT_ITS ---
STUDY: CT ABDOMEN AND PELVIS WITH CONTRAST REASON FOR EXAM: Female, 23 years old. abdominal pain 15K wbc RADIATION DOSAGE (If Supplied By Facility): CTDIvol = ( 10.85 ) mGy, DLP = ( 468.24 ) mGycm TECHNIQUE: Transaxial images were obtained from the dome of the diaphragm to the symphysis pubis without oral contrast. Oral and amp; IV Gastrografin and amp; 100mL Isovue-370 was administered. Sagittal and coronal images were reconstructed. Individualized dose optimization techniques were used for this CT. COMPARISON: December 22, 2018 FINDINGS: The visualized lung bases are unremarkable. The visualized portions of the heart are within normal limits. Normal liver. Normal gallbladder and extrahepatic biliary system. Normal spleen. Normal pancreas. Normal bilateral adrenal glands. No evidence for renal obstruction or mass however, there appears to be focal heterogeneous enhancement of the renal cortex bilaterally and possibility of pyelonephritis not excluded. Normal visualized stomach. Normal small intestine. Normal colon. The appendix is well-visualized. There is no appreciable thickening of the moore or stranding in the fat to suggest acute appendicitis. Normal abdominal aorta. Normal inferior vena cava. Normal retroperitoneum. Normal urinary bladder. Small right ovarian cyst is noted. Normal abdominal wall. Normal osseous structures. CT/Abdomen/Pelvis WITH Contrast IMPRESSION: No evidence for bowel obstruction or definitive evidence for acute appendicitis.. No definitive evidence for acute appendicitis. Cannot exclude possibility of pyelonephritis. Clinical correlation recommended Electronically Signed: Grabiel Garcia MD at 21:01 EDT ,
[2024-01-24 18:46] LABS: AST(SGOT) 24 U/L (15-37); Alanine Aminotransfer ALT/SGPT 20 U/L (13-56); Albumin, Serum 3.7 g/dL (3.2-5.0); Alkaline Phosphatase 54 U/L (45-117); Anion Gap 10 (5-15); BUN 21 mg/dL (7-18); BUN/Creat Ratio 20.4 RATIO (10-20); Bilirubin, Direct 0.17 mg/dL (0.00-0.30); Calcium,Total 9.8 mg/dL (8.5-10.1); Chloride 102 mmol/L (98-107); Creatinine, Serum 1.03 mg/dL (0.55-1.02); EST Glomerular Filtration Rate 70 mL/min (>60); Est Glom Filt Rate - Afr Amer 85 mL/min (>60); Estimated Creatinine Clearance 91.91 ml/min; Globulin 4.5 g/dL (2.2-4.2); Glucose 88 mg/dL (74-106); Lipase 16 U/L (13-75); Potassium 3.8 mmol/L (3.5-5.1); Protein, Total 8.2 g/dL (6.4-8.2); Sodium Level 135 mmol/L (136-145)
[2024-01-24 18:51] LABS: Bacteria 3+ /hpf (None Seen); Mucous, Urine 3+ /hpf (<or=2+); Red Blood Cells-Urine 5-10 SEEN /hpf (0-5); Squamous Epithelial Cells - UA 0-5 SEEN /hpf (5-10); White Blood Cells 25-50 SEEN /hpf (0-5)
[2024-01-24 19:12] VITALS: PULSE 90; RESP 18; O2SAT 99
--- NOTE | 2024-01-24 20:38 | ED.RN ---
Pt has small bruise to right hand from IV removal. Pt family member states that is not just a small bruise, there is something wrong, if it gets any bigger we are suing this hospital. Again tried to provide education to family member, family member unable to be pleased with any answers or explanations. Asked family member if he had any other questions and he refuses to answer. Pt reports everything is okay and don't listen to him, I am fine. Encouraged pt to call out with any needs.
== END 2024-01-24 20:57 | disposition left against medical advice (07) ==
LOC: ED 18:31
PROVIDERS: Emergency Provider Emergency Medicine; Visit Provider Emergency Medicine
DX: N12 Tubulo-interstitial nephritis, not specified as acute or chronic (principal); M54.9 Dorsalgia, unspecified; F17.210 Nicotine dependence, cigarettes, uncomplicated; F41.9 Anxiety disorder, unspecified; Z79.899 Other long term (current) drug therapy; Z53.29 Procedure and treatment not carried out because of patient's decision for other reasons; R10.9 Unspecified abdominal pain
CPT/HCPCS: 74177; 80048; 80076; 81001; 83690; 84703; 85025; 87077; 87086; 87088; 87186; 96374; 96375; 99285; J7030; Q9967; A4216; J2405

== ENCOUNTER 2024-03-02 18:54 | Emergency (ER) | payer MEDICAID, SELFPAY ==
[2024-03-02 18:55] VITALS: BP 149/102; PULSE 112; RESP 18; TEMP 36.6; O2SAT 95; BMI 20.1
--- NOTE | 2024-03-02 20:16 | RAD_ITS ---
INDICATION: pain EXAMINATION/TECHNIQUE: X-RAY - LEFT XR Hand Min 3 Views 3 VIEWS COMPARISON: FINDINGS: BONES: No fracture demonstrated. JOINTS: No dislocation. SOFT TISSUES: Unremarkable. RAD/Hand Min 3 Views IMPRESSION: No evidence of fracture. Electronically Signed: Blanca Rahman MD at 21:14 EDT ,
--- NOTE | 2024-03-02 20:30 | RAD_ITS ---
INDICATION: pain EXAMINATION/TECHNIQUE: X-RAY - RIGHT XR Hand Min 3 Views 3 VIEWS COMPARISON: FINDINGS: BONES: No fracture demonstrated. JOINTS: No dislocation. SOFT TISSUES: Unremarkable. RAD/Hand Min 3 Views IMPRESSION: No evidence of fracture. Electronically Signed: Blanca Rahman MD at 21:12 EDT ,
--- NOTE | 2024-03-02 22:24 | EDS_ITS ---
HPI History of Present Illness Chief Complaint: Upper Extremity Injury Narrative Narrative: 23-year-old female presenting for hand pain. She had A fall at home and states she landed on her hands. She has had pain since then. Its mostly in the bilateral thenar eminence. No wrist pain. No lacerations or abrasions [facility] Medical History Depression Marijuana use Rash Smoker Anemia Home Medications ?Medication ?Instructions ?Recorded ?Last Taken ?Type hydroxyzine pamoate 25 mg capsule 25 mg PO TID PRN anxiety #30 caps 12/14/23 Unknown Rx (Vistaril) ondansetron 4 mg disintegrating 4 mg PO Q6H PRN PRN Nausea #10 tabs 01/24/24 Unknown Rx tablet oxycodone-acetaminophen 5 mg-325 1 tab PO Q6H PRN pain 3 days #12 01/24/24 Unknown Rx mg tablet (Percocet) tabs sulfamethoxazole 800 1 tab PO BID #20 TABLETS 01/24/24 Unknown Rx mg-trimethoprim 160 mg tablet Allergy/AdvReac Type Severity Reaction Status Date / Time No Known Allergies Allergy Verified 03/02/24 18:55 Surgical History History of tonsillectomy Social History Smoking Status: Current every day smoker tobacco type: cigarettes ROS ROS ED Constitutional Constitutional ED: Denies chills, fever(s) or sweats Eyes Eyes: Denies blurry vision or change in vision ENT ENT ED: Denies ear pain or sore throat Cardiovascular Cardiovascular: Denies chest pain, palpitations or racing heartbeat Respiratory/Chest Respiratory/Chest: Denies cough, dyspnea or sputum Gastrointestinal Gastrointestinal: Denies abdominal pain, constipation, diarrhea, nausea or vomiting Genitourinary Genitourinary ED: Denies dysuria, hematuria or urinary frequency Musculoskeletal Musculoskeletal: Reports other Details: Bilateral hand pain ; Denies arthralgias, myalgias or neck pain Integumentary Denies abscess, Abrasions or rash Neurologic Neurologic: Denies headache(s), paresthesias or weakness Psychiatric Psychiatric: Denies anxiety, depression, suicidal ideation or suicidal thoughts Endocrine Endocrinology: Denies polydipsia or polyuria EXAM Physical Exam Const Vital Signs: 03/02/24 18:55 Temperature 97.9 F Temperature Source Temporal Pulse Rate 112 H Respiratory Rate 18 Blood Pressure 149/102 H Blood Pressure Mean 117 Pulse Ox 95 Oxygen Delivery Method Room Air Positive well nourished General Appearance ED: NAD Eyes PERRL Resp normal respiratory effort Cardio regular rate and regular rhythm Extremity Extremity Narrative: There is tenderness to palpation to the bilateral thenar eminences. There is no obvious deformities. Both hands are neurovascular intact brisk cap refill to all 5 fingers. There is a blue discoloration which looks like in on her index finger on the right. There is no blood Neuro oriented x3 and CN's II-XII intact bilaterally Sensorium / Orientation: alert Motor Exam: strength 5/5 throughout MDM MDM MDM Narrative Medical decision making narrative: 23-year-old female presenting with bilateral hand pain. On exam she only has tenderness to the bilateral thenar eminences. There is no obvious deformities. We obtained x-rays of the bilateral hands today which were both negative for fracture on my interpretation. Patient counseled on ibuprofen at home for pain. Ice and rest as needed. Impression: 1. Mechanical fall 2. Bilateral hand contusion Radiography Diagnostic Testing: Clinical Impression(s) from Imaging Studies Hand X-Ray 03/02/24 20:16 IMPRESSION: No evidence of fracture. Electronically Signed: Blanca Rahman MD at 21:14 EDT Reading Location ID and State: [facility] / [place] Tel , Service support , Hand X-Ray 03/02/24 20:30 IMPRESSION: No evidence of fracture. Electronically Signed: Blanca Rahman MD at 21:12 EDT , Discharge Plan Triage Chief Complaint: Upper Extremity Injury Other Complaint: Rash ED Provider: Chirag Franco Dx/Rx/DC Orders Instructions: ED Hand Contusion Prescriptions: No Action hydroxyzine pamoate [Vistaril] 25 mg capsule 25 mg PO TID PRN (Reason: anxiety) Qty: 30 0RF sulfamethoxazole-trimethoprim 800-160 mg tablet 1 tab PO BID Qty: 20 0RF oxycodone-acetaminophen [Percocet] 5-325 mg tablet 1 tab PO Q6H PRN (Reason: pain) 3 Days Qty: 12 0RF ondansetron 4 mg tablet,disintegrating 4 mg PO Q6H PRN PRN (Reason: Nausea) Qty: 10 0RF Primary Care Provider: Care Physician,No Primary Referrals: Ale Vicente [facility] [Provider Group] - 3-5 Days Care Physician,No Primary [Primary Care Provider] - Print Language: Malawian Disposition Disposition: Home, Self Care
== END 2024-03-02 22:29 | disposition home or self-care (01) ==
PROVIDERS: Emergency Provider Student in an Organized Health Care Education/Training Program; Visit Provider Student in an Organized Health Care Education/Training Program
DX: S60.221A Contusion of right hand, initial encounter (principal); R21 Rash and other nonspecific skin eruption; F17.210 Nicotine dependence, cigarettes, uncomplicated; S60.222A Contusion of left hand, initial encounter; W19.XXXA Unspecified fall, initial encounter
CPT/HCPCS: 73130; 99283